=== PATIENT | female | born 1985 | race Caucasian/White ===

== ENCOUNTER 2018-04-03 17:18 | Emergency (ER) | payer MEDICARE, MEDICAID ==
[~2018-04-03] VITALS: Ht 167.6 cm; Wt 57.0 kg
[2018-04-03 17:58] VITALS: BP 103/65
== END 2018-04-03 17:58 | disposition home or self-care (01) ==
LOC: ED 17:18
DX: Z77.29 Contact with and (suspected) exposure to other hazardous substances (principal); F17.210 Nicotine dependence, cigarettes, uncomplicated; X08.8XXA Exposure to other specified smoke, fire and flames, initial encounter; Y93.84 Activity, sleeping; Y92.009 Unspecified place in unspecified non-institutional (private) residence as the place of occurrence of the external cause